=== PATIENT | female | born 1945 | race Caucasian/White ===

== ENCOUNTER 2020-05-19 16:57 | Observation (INO) | payer MEDICARE ==
--- NOTE | 2020-05-19 18:11 | RAD ---
CHEST ONE VIEW: 05/19/20 HISTORY: Hypoglycemia. COMPARISON: None. FINDINGS: The heart size is upper limits of normal. No confluent air space consolidation, pneumothorax or effus ion. No acute osseous abnormality. Advanced degenerative changes in both shoulders. IMPRESSION: No acute intrathoracic abnormality. POS: HOME
[2020-05-19 18:29] LABS: #Basophils 0.1 thou/uL (0.0-0.2); #Eosinphils 0.1 thou/uL (0.0-0.7); #Lymphocytes 1.4 thou/uL (1.20-3.40); #Monocytes 0.4 thou/uL (0.11-0.59); #Neutrophils 5.7 thou/uL (1.40-6.50); %Basophils 0.9 % (0.0-1.0); %Eosinophils 1.9 % (0.0-10.0); %Lymphocytes 17.7 % (21.0-51.0); %Neutrophils 74.5 % (42.0-75.0); Mean Corpuscular HGB CONC 31.8 g/dL (32.0-36.0); Mean Corpuscular Hemoglobin 26.5 pg (27.0-31.0); Mean Corpuscular Volume 83.4 fL (78.0-98.0); Mean Platelet Volume 9.9 fL (7.4-10.4); Platelet Count 216 thou/uL (130-400); RBC Distribution Width 13.4 % (11.5-14.5); Red Blood Cell (RBC) Count 4.52 mill/uL (4.20-5.40); White Blood Cell (WBC) Count 7.7 thou/uL (4.8-10.8)
[2020-05-19 18:43] LABS: ALT (SGPT) 25 U/L (8-55); AST (SGOT) 28 U/L (5-34); Albumin 3.9 g/dL (3.4-4.8); Alkaline Phosphatase 145 U/L (40-110); Anion Gap 18 mmol/L (10-20); BUN (Urea Nitrogen) 22 mg/dL (9.8-20.1); Bilirubin, Total 0.5 mg/dL (0.2-1.2); Calc. Creatinine Clearance 0 mL/min (70-130); Calcium 9.5 mg/dL (7.8-10.44); Carbon Dioxide 24 mmol/L (23-31); Chloride 102 mmol/L (98-107); Globulin 3.2 g/dL (2.4-3.5); Glucose 111 mg/dL (83-110); Lipase 29 U/L (8-78); Potassium 4.4 mmol/L (3.5-5.1); Protein, Total 7.1 g/dL (5.8-8.1); Sodium 140 mmol/L (136-145)
[2020-05-19 19:46] LABS: Bilirubin Negative (Negative); Blood, Urine Negative (Negative); Clarity Clear (Clear); Glucose, Urine (Dipstick) Negative (Negative); Ketone, Urine Negative (Negative); Leukocyte Trace (Negative); Nitrite Negative (Negative); Protein, Urine (Dipstick) Negative (Neg-Trace); Specific Gravity, Urine 1.015 (1.005-1.030); Urobilinogen 0.2 mg/dL (Less than 2); pH, Urine 5.5 (5.0-9.0)
[2020-05-19 19:57] LABS: Bacteria/HPF Rare-Few HPF (None Seen); Mucous/LPF None Seen LPF (<2+); RBC/HPF 0-3 HPF (0-3); Squamous Epithelial 0-3 HPF (0-3); WBC/HPF 0-3 HPF (0-3)
[2020-05-19] MEDS ORDERED: Dextrose 5 %-0.45 % NaCl 1,000 ML ONE (21:36)
[2020-05-19 23:41] LABS: SARS-CoV-2 NAA Rapid Test Not Detected (NotDetected)
[2020-05-20] MEDS ORDERED: Dextrose 5 %-0.45 % NaCl 1,000 ML IV SCH (03:00)
[2020-05-20] MEDS ORDERED: Enoxaparin Sodium 40 MG/0.4 ML SYRINGE SC SCH ×2 (03:00→09:00)
[2020-05-20] MEDS ORDERED: tiZANidine HCl 4 MG TAB PO PRN (03:02)
[2020-05-20] MEDS ORDERED: Ondansetron ODT 4 MG TAB PO PRN (03:07)
[2020-05-20] MEDS ORDERED: Albuterol 200 PUFF (6.7GM INHALER) INH PRN (03:07)
[2020-05-20] MEDS ORDERED: Lorazepam 1 MG TAB PO PRN (03:12)
[2020-05-20] MEDS: traMADol HCl 50 MG TAB PO SCH ×2 (05:30→12:05)
[2020-05-20 05:37] LABS: Anion Gap 14 mmol/L (10-20); BUN (Urea Nitrogen) 18 mg/dL (9.8-20.1); Calc. Creatinine Clearance 85 mL/min (70-130); Calcium 9.1 mg/dL (7.8-10.44); Carbon Dioxide 27 mmol/L (23-31); Chloride 102 mmol/L (98-107); Glucose 249 mg/dL (83-110); Potassium 3.8 mmol/L (3.5-5.1); Sodium 139 mmol/L (136-145)
[2020-05-20 05:43] LABS: #Eosinphils 0.2 thou/uL (0.0-0.7); #Lymphocytes 1.6 thou/uL (1.20-3.40); #Monocytes 0.5 thou/uL (0.11-0.59); #Neutrophils 4.1 thou/uL (1.40-6.50); %Basophils 0.7 % (0.0-1.0); %Eosinophils 3.1 % (0.0-10.0); %Lymphocytes 24.9 % (21.0-51.0); %Monocytes 7.5 % (0.0-10.0); %Neutrophils 63.8 % (42.0-75.0); Hemoglobin 11.2 g/dL (12.0-16.0); Mean Corpuscular HGB CONC 31.5 g/dL (32.0-36.0); Mean Corpuscular Hemoglobin 26.5 pg (27.0-31.0); Mean Corpuscular Volume 83.9 fL (78.0-98.0); Platelet Count 213 thou/uL (130-400); RBC Distribution Width 13.6 % (11.5-14.5); Red Blood Cell (RBC) Count 4.23 mill/uL (4.20-5.40); White Blood Cell (WBC) Count 6.5 thou/uL (4.8-10.8)
[2020-05-20] MEDS ORDERED: Levothyroxine Sodium 100 MCG TAB PO SCH (06:00)
[2020-05-20] MEDS ORDERED: LINZESS 290 MCG PO SCH (07:30)
[2020-05-20] MEDS ORDERED: Ferrous Sulfate 325 MG TAB PO SCH (08:00)
[2020-05-20] MEDS ORDERED: Potassium Chloride 10 MEQ TAB PO SCH (08:00)
[2020-05-20] MEDS: Carbidopa/Levodopa 25-100 mg Tablet PO SCH ×2 (08:21→15:29)
[2020-05-20] MEDS: Sucralfate 1 GM TAB PO SCH ×2 (08:21→15:30)
[2020-05-20] MEDS: Pramipexole Di-HCl 0.25 MG TAB PO SCH ×2 (08:22→15:30)
[2020-05-20] MEDS ORDERED: Gabapentin 300 MG CAP PO SCH (09:00)
[2020-05-20] MEDS ORDERED: Aripiprazole 10 MG TAB PO SCH (09:00)
[2020-05-20] MEDS ORDERED: Magnesium Oxide 400 MG TAB PO SCH (09:00)
[2020-05-20] MEDS ORDERED: Furosemide 40 MG TAB PO SCH (09:00)
[2020-05-20] MEDS ORDERED: Losartan Potassium 50 MG TAB PO SCH (09:00)
[2020-05-20] MEDS ORDERED: BIOTIN 5000 MCG SL SCH (09:00)
[2020-05-20] MEDS ORDERED: Carvedilol 12.5 MG TAB PO SCH (09:00)
[2020-05-20] MEDS ORDERED: Atorvastatin Calcium 40 MG TAB PO SCH (09:00)
[2020-05-20] MEDS ORDERED: Loratadine 10 MG TAB PO SCH (09:00)
[2020-05-20] MEDS ORDERED: Aspirin Chewable 81 MG TAB PO SCH (09:00)
[2020-05-20 16:07] VITALS: BP 113/73; TEMP 98.3
[2020-05-20] MEDS ORDERED: ZALEPLON 10 MG PO SCH (21:00)
[2020-05-20] MEDS ORDERED: Nortriptyline HCl 25 MG CAP PO SCH (21:00)
[2020-05-20] MEDS ORDERED: Melatonin 3 MG TAB PO SCH (21:00)
--- NOTE | 2020-05-21 07:24 | SS ---
DATE OF ADMISSION: 05/19/2020 DATE OF DISCHARGE: 05/20/2020 PRIMARY CARE PHYSICIAN: Saurabh Monterroso/chalk extruding machine operator, Saurabh. HISTORY AND COURSE: Ms. Terrazas is a 74-year-old female with significant history of diabetes type 2, insulin requiring. She was sent by her at [facility] on 05/19/2020 due to decreased alertness on the morning of 05/19/2020. This is associated by some vomitus noted on her shirt and face. Spouse checked her sugar at home, and it was reported at 45. Spouse gave her two glucose tablets and it only came up to 50. EMS was summoned, and she was given amp of D10 at home. Blood sugar came up to 116 prior to EMS leaving. The patient has significant history of tardive dyskinesia, parkinsonism on top of her endocrine issues and retrobulbar palsy. The patient is not able to articulate well, and the patient can only answer 1 to 2 words, but very incomprehensible words. Per spouse report, this is the patient's baseline mental status. Spouse reported that the patient had not had any oral intake after did the last dinner on 05/18/2020. Spouse reports that the patient slept late on the night of 05/18/2020, and did not wake up till late morning of 05/19/2020, when he discovered a very low sugar. The patient was transferred to [facility] where her sugar upon arrival was reported at 111. On further examination, potassium was 4.4, BUN 22, creatinine 0.95, lactic acid 0.7. Troponin 0.018. Lipase 29. Liver function tests within normal limits. Negative urine. Negative COVID test. Hemoglobin of 12, hematocrit of 37.7, WBC 7.7, and platelets of 216. On further observation at the ER, the patient's blood sugar reported to go down more despite all giving meals. She was then advised to stay at [facility] for 24-hour observation. Before she was transferred from the ER to the floor, the patient's blood sugar was reported down to 64. The patient was started on D5 50 at 100 mL/h. The patient also received potassium chloride from the ER with D5 0.45, sodium chloride prior to transfer to the floor. Upon admission to the floor, the patient's sugar was reported at 59. On repeat after giving sweet orange juice, the patient's sugar was down to 40. The patient remained at her baseline mental status. The patient was given half amp of glucagon, and her blood sugar improved to 167 thereafter. The patient was maintained on D5 water IV hydration overnight. Her blood sugar runs from 167 to 233. A repeat lab this morning showed blood sugar of 249, sodium 139, potassium 3.8, BUN 18, creatinine 0.98, and calcium of 9.1. The patient started eating well with full meals, and her blood sugar was maintained between 162 to 181 prior to discharge. There were no significant other issues reported. The patient was very adamant to go home and started crying, screaming while waiting to be discharged. After discussion with the regarding the patient's improved condition and status, the patient was deemed hemodynamically stable to go back home with recommendation to hold her long-acting basal insulin and to maintain only on short-acting insulin for sliding coverage as previously prescribed. She is recommended to follow up with either PCP or chalk extruding machine operator within a week with glucose readings to be reviewed by either PCP or chalk extruding machine operator. Per spouse, they follow up with PCP and chalk extruding machine operator in [facility], and he will arrange for the followup appointment. During this admission, we also discussed spouse is concerned that the patient has been generally weak lately. He reports that the patient has been falling at least three times over the past couple of weeks secondary to general weakness. I offered an inpatient rehab in [facility], but the patient declined. Spouse then agreed to proceed with home health services, thus referred. PAST MEDICAL HISTORY: As mentioned per HPI. Other past medical history includes anxiety, depression, IBS, MILTON on CPAP, seizures, anemia, hypothyroidism, neuropathic pain, chronic pain syndrome. SURGICAL HISTORY: , hysterectomy, gallbladder removal. ALLERGIES: AMLODIPINE, CECLOR. CURRENT MEDICATIONS: 1. Abilify 20 mg daily. 2. Aspirin 81 mg p.o. daily. 3. Carbidopa/levodopa 25/100 mg p.o. daily. 4. Carvedilol 25 mg b.i.d. 5. Claritin 10 mg p.o. daily. 6. Iron 325 mg p.o. daily. 7. Lantus 45 units b.i.d. 8. Linzess 290 mcg daily. 9. Lorazepam 1 mg p.o. every 8 hours p.r.n. 10. Nortriptyline 75 mg p.o. daily. 11. Tizanidine 4 mg every 8 hours p.r.n. 12. Tramadol 50 mg two tablets every 6 hours p.r.n. 13. Euthyrox 100 mcg p.o. q.a.m. 14. Gabapentin 600 mg one tablet b.i.d. 15. Lasix 40 mg p.o. daily. 16. Losartan 50 mg p.o. daily. 17. Magnesium 250 mg p.o. daily. 18. Sonata 10 mg p.o. daily. 19. Ventolin HFA two puffs q.6 hours p.r.n. 20. Zofran 4 mg q.6 p.r.n. 21. Prevacid 30 mg p.o. daily. 22. Carafate 1 g three times a day. 23. Humalog 12 units subcutaneous three times a day. 24. Pramipexole 0.75 mg p.o. t.i.d. 25. Potassium daily. 26. Melatonin 9 mg p.o. q.h.s. p.r.n. 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 Per spouse, denies fever, chills, cough, colds, chest pain, shortness of breath, difficulty breathing, difficulty swallowing, syncope, or seizure activities lately. PHYSICAL EXAMINATION: VITAL SIGNS: Blood pressure 149/73, temperature 98.8, pulse 98, respirations 18, O2 saturations 96% on room air . Vital signs prior to discharge, blood pressure 130/81, temperature 98.2, pulse 93, respirations 18, O2 saturation 96% on room air. Weight 229 pounds and height 5 feet 4 inches. GENERAL: The patient is awake, alert, oriented to person and place only, not in distress. HEENT: Atraumatic. PERRLA. Intact EOM. Anicteric sclerae. Oral mucosa is moist. NECK: Supple. No LAD. Flat JVD. CHEST: Normal excursion. Nonlabored breathing. LUNGS: Clear to auscultation bilaterally. CARDIAC: RRR. Normal S1 and S2. ABDOMEN: Obese, soft, nondistended. Normoactive bowel sounds. Nontender. EXTREMITIES: No edema. No cyanosis. SKIN: Stage 2 to 3 heel open wound covered with dry brownish scab with surrounding erythema, left heel. Erythematous moist rash on the left groin extending to the perineal area, well demarcated borders. Hematoma noted on the left lateral thigh about 6 to 8 cm in size. PSYCH: Quiet and cooperative initially, but easily gets agitated. She hears about staying in the hospital. She is consolable. ASSESSMENT AND PLAN: 1. Hypoglycemia associated with diabetes type 2, insulin requiring; hypertension; tardive dyskinesia; parkinsonism; neuropathic pain. 2. Hypothyroid, depression, anxiety, chronic insomnia, anemia chronic, chronic pain syndrome. 3. Stage 2 to 3 left heel pressure ulcer. 4. Candidal dermatitis. 5. Physical deconditioning secondary to general weakness. 6. Unsteadiness of gait with history of falling at home with no significant injury. DISCHARGE INSTRUCTIONS: 1. Continue all current medications per home medication list except the NovoLog scheduled and Lantus scheduled. The patient is recommended to continue Accu-Chek monitoring with sliding-scale coverage using Humulin as per previous prescribed at home. Hypoglycemic precautions. To avoid skipping meals. To eat on time. To keep blood sugar diary at home at least t.i.d. to q.i.d. and p.r.n. To schedule appointment with PCP or chalk extruding machine operator in 1 week. To bring the blood glucose diary to her next appointment. 2. The patient to use [id number] Lotrimin cream b.i.d. to the groin and perineal region. 3. Refer to home health for PT, OT, [facility], diabetic education and training, wound care. Time spent on this discharge 32 minutes in examining the patient, reviewing records, coordinating care, and counseling. Job ID: [id number]
== END 2020-05-20 16:30 | disposition home or self-care (01) ==
LOC: MADERS 16:57 → MADMS 21:31 → INTOOBSV 21:31
PROVIDERS: ADMIT Family Medicine; ATTEND Family Medicine
DX: E11.649 Type 2 diabetes mellitus with hypoglycemia without coma (principal); I10 Essential (primary) hypertension; G24.01 Drug induced subacute dyskinesia; G20 Parkinson's disease; E11.40 Type 2 diabetes mellitus with diabetic neuropathy, unspecified; L89.623 Pressure ulcer of left heel, stage 3; B37.2 Candidiasis of skin and nail; R53.1 Weakness; R26.81 Unsteadiness on feet; G12.22 Progressive bulbar palsy; F41.9 Anxiety disorder, unspecified; F32.9 Major depressive disorder, single episode, unspecified; K58.9 Irritable bowel syndrome, unspecified; G47.33 Obstructive sleep apnea (adult) (pediatric); E03.9 Hypothyroidism, unspecified; G89.4 Chronic pain syndrome; Z91.81 History of falling; Z79.4 Long term (current) use of insulin; Z79.82 Long term (current) use of aspirin; Z79.899 Other long term (current) drug therapy; Z88.1 Allergy status to other antibiotic agents; Z88.8 Allergy status to other drugs, medicaments and biological substances; Z20.822 Contact with and (suspected) exposure to COVID-19
CPT/HCPCS: 0240U; 36415; 36416; 71045; 80048; 80053; 81003; 81015; 83605; 83690; 84484; 85025; 96372; G0378; J1610; J1650; J7042